=== PATIENT | male | born 1980 | race Caucasian/White ===

== ENCOUNTER 2016-10-13 20:38 | Emergency (ER) | payer BC, OTHER ==
[2016-10-13 20:50] VITALS: BP 139/110
--- NOTE | 2016-10-13 20:57 | EDM.PDOC ---
ED HPI GENERAL MEDICAL PROBLEM - General Chief Complaint: Upper Extremity Injury/Pain Stated Complaint: POSS HAND INJURY Time Seen by Provider: 10/13/16 20:56 - History of Present Illness INITIAL COMMENTS - FREE TEXT/NARRATIVE: 36-year-old male presents emergency room with a right hand injury. On Tuesday the patient was working in the garden and obtained 2 small puncture wounds to his hand. He doesn't think he got bit by anything he believes it occurred while trying to plant a small tree. The patient has developed some redness and swelling around the area. he denies any fevers or chills no significant discomfort. Last tetanus shot 2013 - Related Data Allergies Allergy/AdvReac Type Severity Reaction Status Date / Time No Known Allergies Allergy Verified 10/13/16 20:50 Home Meds: Home Meds Doxycycline Hyclate 100 mg PO Q12H #14 capsule 10/13/16 [Rx] Social & Family History - Tobacco Use Smoking Status *Q: Current Every Day Smoker Years of Tobacco use: 12 Packs/Tins Daily: 0.2 - Recreational Drug Use Recreational Drug Use: No Review of Systems - Review of Systems Review Of Systems: See Below Constitutional: Reports: no symptoms Respiratory: Reports: No Symptoms Cardiovascular: Reports: no symptoms GI/Abdominal: Reports: No symptoms Trauma Exam - Physical Exam Exam: See Below Exam Limited By: No limitations General Appearance: Reports: alert, no apparent distress Respiratory Exam: Reports: no respiratory distress, lungs clear, normal breath sounds Cardiovascular: Reports: normal peripheral pulses, regular rate, rhythm, no edema Extremities: Other (Right hand shows 2 small puncture wounds versus abrasions in the thenar web. There some mild surrounding erythema and warmth to these it is unsure to me if this is streaking up his arm however the patient believes it is with the lighting in the room and his sun exposure changes to the skin it's hard to determine.) Course - Vital Signs Last Recorded V/S: Last Vital Signs Temp 36.8 C 10/13/16 20:48 Pulse 73 10/13/16 20:48 Resp 16 10/13/16 20:48 BP 139/110 H 10/13/16 20:48 Pulse Ox 99 10/13/16 20:48 - Re-Assessments/Exams Free Text/Narrative Re-Assessment/Exam: 10/13/16 21:03 Right hand injury 2 mild puncture wounds possible surrounding erythema it may be extending into the arm. We'll treat as cellulitis neurovascular status normal tendon function is entirely normal no bony tenderness. Departure - Departure Time of Disposition: 21:04 Disposition: Home, Self-Care 01 Clinical Impression: Cellulitis, Puncture wound - Discharge Information Prescriptions: Doxycycline Hyclate 100 mg PO Q12H #14 capsule Instructions: Puncture Wound, [id number], Cellulitis, Adult, [id number] Referrals: Rick Garcia MD [Primary Care Provider] - Forms: ED Department Discharge Additional Instructions: Return to emergency room with any questions or problems. Followup in the clinic with your provider at the end of this week for recheck to make sure this is improving. You been started on doxycycline this is an antibiotic take one twice daily until gone
== END 2016-10-13 21:30 | disposition home or self-care (01) ==
LOC: JD.ED 20:38
DX: S61.431A Puncture wound without foreign body of right hand, initial encounter (principal); L03.113 Cellulitis of right upper limb; X58.XXXA Exposure to other specified factors, initial encounter; F17.210 Nicotine dependence, cigarettes, uncomplicated
CPT/HCPCS: 99283

== ENCOUNTER 2022-02-04 10:05 | Day surgery (SDC) | payer BC ==
[~2022-02-04 10:05] MED LIST: Lactated Ringers 1,000 ML IV SCH; Lidocaine 1%/Sod Bicarbonate in NS 8.4% 1 ML Syringe IDERM PRN; Sodium Chloride 0.9% 10 ML Syringe FLUSH PRN; Sodium Chloride 0.9% 10 ML Syringe FLUSH SCH
[2022-02-04] MEDS ORDERED: Propofol 200 MG/20 ML SDV ONE (10:39)
[2022-02-04] MEDS ORDERED: Lidocaine 1% 5 ML VIAL ONE (10:39)
[2022-02-04] MEDS ORDERED: Midazolam 1 MG/ML 2 ML SDV ONE (10:39)
[2022-02-04] MEDS ORDERED: fentaNYL 100 MCG/2 ML SDV ONE (10:40)
[2022-02-04] MEDS ORDERED: Ropivacaine 0.5% 5 MG/ML 30 ML SDV ONE (10:44)
[2022-02-04] MEDS ORDERED: Ondansetron 4 MG/2 ML SDV ONE (12:12)
[2022-02-04] MEDS ORDERED: ceFAZolin 2 GM Vial ONE (12:22)
[2022-02-04 13:58] VITALS: BP 144/92; PULSE 78
== END 2022-02-04 14:05 | disposition home or self-care (01) ==
LOC: JD.SDS 10:05
PROVIDERS: ATTEND Orthopaedic Surgery
DX: S46.212A Strain of muscle, fascia and tendon of other parts of biceps, left arm, initial encounter (principal); Z79.899 Other long term (current) drug therapy; Z98.890 Other specified postprocedural states; Z87.891 Personal history of nicotine dependence
CPT/HCPCS: 24341; 76000; C1776; J0690; J2250; J2405; J2704; J2795; J3010; J7120; 64415; 76942